=== PATIENT | female | born 1980 | race Asian ===

== ENCOUNTER 2016-07-30 13:46 | Emergency (ER) | payer MEDICAID, OTHER ==
[~2016-07-30] VITALS: Wt 63.6 kg
--- NOTE | 2016-07-30 16:13 | RADRPT ---
PROCEDURE: OBSTETRICAL ULTRASOUND WITH ENDOVAGINAL IMAGES CLINICAL INDICATION: vag bleed TECHNIQUE: Multiple sonographic images of the pelvis were obtained utilizing a transabdominal and endovaginal technique. The images were reviewed on a PACS workstation. COMPARISON: None. LMP: 06/14/2016 FINDINGS: There is a single live intrauterine with heart rate of 124 beats per minute, mean sa c diameter of 1.87 cm, and crown-rump length of 0.69 cm which is consistent with a gestational age o f 6 weeks, 5 days . The estimated date of delivery by ultrasound is 03/20/2017 . The estimated gestational age by LMP is 6 weeks, 4 days . The estimated date of delivery by LMP is 03/21/2017 . The right ovary measures 2.5 x 2.0 x 2.3 cm. The left ovary measures 3.6 x 2.3 x 2.4 cm. There is no rmal vascular flow in both ovaries. There is a 2.3 x 1.4 x 1.6 cm circumscribed oval hyperechoic lesion in the right ovary with posterio r acoustic enhancement which has the typical appearance of a dermoid cyst. No significant pelvic free fluid is identified. IMPRESSION: Single live intrauterine consistent with a gestational age of 6 weeks, 5 days . The estimated date of delivery is 03/20/2017 . Dating by ultrasound is within 1 day of dating by LMP. 2.3 cm hyperechoic lesion in the right ovary has the typical appearance a dermoid cyst. RPTAT: EE Physician Cristy Date Time Electronically viewed and signed by Physician Cristy on 07/30/2016 16:13 /
--- NOTE | 2016-07-30 16:46 | ERD ---
ER Documentation Chief Complaint Date/Time DATE: 07/30/16 TIME: 16:42 Chief Complaint vag bleed, 6.5 wks preg HPI This patient is a 36-year-old [id number] female presenting to the department at 6 weeks of for brown spotting on the tissue which she noticed earlier this morning when going to the bathroom. The patient was at her SYSTEM SUPPORT DEVELOPER appointment and saw the nurse practitioner just prior to coming to the emergency department. She had an ultrasound done here which reportedly showed no heart tones and no pole because the fetus was to early. The patient denies any pain, fevers, chills, abdominal pain, nausea, vomiting, diarrhea or other symptoms at this time. ROS All systems reviewed and are negative except as per history of present illness. PMhx/Soc Medical and Surgical Hx: pt denies Medical Hx, pt denies Surgical Hx FmHx Noncontributory for chief complaint Physical Exam Vitals Vital Signs Date Time Temp Pulse Resp B/P Pulse Ox O2 Delivery O2 Flow Rate FiO2 07/30/16 14:10 98.0 75 20 123/65 100 Physical Exam INITIAL VITAL SIGNS: Reviewed by me GENERAL: The patient is well developed and appropriate for usual state of health in no apparent distress HEENT: Pupils equal, round, and reactive to light. EOMI. There is no scleral icterus. NECK: C-spine is soft and supple, there is no meningismus. There is no cervical lymphadenopathy. LUNGS: Clear to auscultation bilaterally. There are no rales, wheezes or rhonchi. HEART: Regular rate and rhythm, no murmurs, clicks, rubs or gallops. ABDOMEN: Soft, non-tender, non-distended. There are bowel sounds in all four quadrants. No rebound or guarding. EXTREMITIES: There is no peripheral cyanosis or edema. No focal swelling or erythema. NEUROLOGICAL: The patient moves all four extremities with 5/5 strength. Cranial nerves II - XII are intact. Normal gait. Alert and oriented SKIN: There is no apparent rash or petechiae. HEME/LYMPHATIC: There is no evidence of excessive bruising or lymphedema. PSYCHIATRIC: The patient does not appear anxious or depressed. Procedures/MDM ED course: Imaging: OBSTETRICAL ULTRASOUND WITH ENDOVAGINAL IMAGES: Single live intrauterine consistent with a gestational age of 6 weeks , 5 days . The estimated date of delivery is 03/20/2017 . Dating by ultrasound is within 1 day of dating by LMP. 2.3 cm hyperechoic lesion in the right ovary has the typical appearance a dermoid cyst. MDM: 36-year-old female presenting to the emergency department for brown spotting that she saw on the toilet paper this morning. On physical examination there is no suprapubic tenderness or CVA tenderness. On interpretation of ultrasound results there is a single live intrauterine consistent with gestational age of 6 weeks and 5 days. The patient has an appointment with her SYSTEM SUPPORT DEVELOPER doctor tomorrow and she was given copies of her ultrasound results. At this time I have ruled out ectopic , fallopian torsion, demise, and other abdominal/OB emergencies. The patient is stable for discharge at this time. All questions and concerns were addressed at this time. Departure Diagnosis: Primary Impression: Vaginal bleeding in patient at less than 20 weeks ges... Condition: Good Patient Instructions: Bleeding During Early Additional Instructions: Follow up with your OBGYN at scheduled appointment tomorrow. Please bring copy of Ultrasound report with you. Follow-up with your primary care physician within 1 week. Return to the emergency department immediately should you have any new or worsening symptoms, uncontrolled fevers, or other unexplained symptoms. CAROL BLACK PA-C Jul 30, 2016 16:45
== END 2016-07-30 16:40 | disposition home or self-care (01) ==
LOC: FTE 13:46
DX: O20.9 Hemorrhage in early pregnancy, unspecified (principal); Z3A.01 Less than 8 weeks gestation of pregnancy
CPT/HCPCS: 76801; 76817; Z7502

== ENCOUNTER 2016-08-21 21:18 | Emergency (ER) | payer MEDICAID ==
[~2016-08-21] VITALS: Ht 160 cm; Wt 81.0 kg
[2016-08-21 21:32] VITALS: Ht 160 cm; Wt 81.0 kg
--- NOTE | 2016-08-21 23:50 | ERD ---
ER Documentation Chief Complaint Date/Time DATE: 08/21/16 TIME: 23:47 Chief Complaint 9wks , vag bleeding 1 hour ago HPI Patient is a 36-year-old female, approximately 9 weeks , A1, who presents to the emergency department with vaginal bleeding 2 hours. Patient states 3 days ago she had some spotting. Today she noticed some bright red blood. Patient denies using any pads yet. Patient denies any nausea, vomiting, fever, chills. Patient reports some suprapubic pain. She states that her current pain level is a 2 out of 10. It feels more like "pressure." Patient denies any dysuria. Patient denies any excessive vaginal discharge. Patient denies any sick contacts. No recent travel. Patient did have OB ultrasound done a few weeks ago, which she reports was normal. LMP= 06/14/16. ROS All systems reviewed and are negative except as per history of present illness. Allergies Allergies: Coded Allergies: No Known Allergy (Unverified , 08/21/16) PMhx/Soc Medical and Surgical Hx: pt denies Medical Hx, pt denies Surgical Hx History of Surgery: No Anesthesia Reaction: No Hx Neurological Disorder: No Hx Respiratory Disorders: No Hx Cardiac Disorders: No Hx Psychiatric Problems: No Hx Miscellaneous Medical Probl: No Hx Alcohol Use: No Hx Substance Use: No Hx Tobacco Use: No FmHx Family History: No diabetes Physical Exam Vitals Vital Signs Date Time Temp Pulse Resp B/P Pulse Ox O2 Delivery O2 Flow Rate FiO2 08/22/16 03:05 100.7 77 18 117/78 100 Room Air 08/21/16 21:32 97.9 83 20 128/77 99 Physical Exam GENERAL: Well-developed, well-nourished female. Appears in no acute distress. HEAD: Normocephalic, atraumatic. EYES: Pupils are equally reactive bilaterally. EOMs grossly intact. No conjunctival erythema. ENT: Moist mucous membranes. No uvula deviation. No kissing tonsils. NECK: Supple. No lymphadenopathy or thyromegaly. No meningismus. LUNG: Clear to auscultation bilaterally. No rhonchi, wheezing, rales or coarse breath sounds. HEART: Regular rate and rhythm. No murmurs, rubs or gallops. ABDOMEN: No scars, ecchymosis or rashes noted. Soft and nondistended. Tender to palpation in suprapubic region. Positive bowel sounds in all four quadrants. No rebound tenderness, no guarding. (-) McBurneys point tenderness. No CVA tenderness. BACK: No midline tenderness. EXTREMITIES: Equal pulses bilaterally. No peripheral clubbing, cyanosis or edema. No unilateral leg swelling. NEUROLOGIC: Alert and oriented. Moving all four extremities without any difficulty. Normal speech. Steady gait. SKIN: Normal color. Warm and dry. No rashes or lesions. Result Diagram: 08/21/16 2350 Results 24 hrs Laboratory Tests Test 08/21/16 23:50 08/22/16 00:21 Basophils # 0.010^3/ul Basophils % 0.3% Beta HCG, Quantitative 43802.0mIU/ml Eosinophils # 0.110^3/ul Eosinophils % 1.2% Hematocrit 42.3% Hemoglobin 14.0g/dl Lymphocytes # 1.810^3/ul Lymphocytes % 18.8% Mean Corpuscular Hemoglobin 29.7pg Mean Corpuscular Hemoglobin Concent 33.1g/dl Mean Corpuscular Volume 89.6fl Mean Platelet Volume 9.1fl Monocytes # 0.510^3/ul Monocytes % 5.1% Neutrophils # 7.010^3/ul Neutrophils % 74.3% Nucleated Red Blood Cells # 0.010^3/ul Nucleated Red Blood Cells % 0.0/100WBC Platelet Count 74524^3/UL Red Blood Count 4.7210^6/ul Red Cell Distribution Width 12.5% White Blood Count 9.410^3/ul Urine Bilirubin NEGATIVE Urine Clarity CLEAR Urine Color LT. YELLOW Urine Glucose NEGATIVE% Urine Hemoglobin 3+ Urine Ketones NEGATIVE Urine Leukocyte Esterase NEGATIVE Urine Microscopic RBC 10-25/HPF Urine Microscopic WBC NONE SEEN/HPF Urine Nitrite NEGATIVE Urine Specific [place] <=1.005 Urine Squamous Epithelial Cells OCCASIONAL Urine Total Protein NEGATIVE Urine Urobilinogen 0.2 E.U./dL Urine pH 6.5 Procedures/MDM ED COURSE: The patient was stable throughout ED course. I kept the patient and/or family informed of laboratory and diagnostic imaging results throughout the ED course. DIAGNOSTIC IMAGING: Read by radiologist. DIAGNOSTIC IMAGING REPORT Patient: BARRINGTON HERNANDEZ : 1980 Age: 36 Sex: F MR #: [id number] DOS: 08/22/16 2342 Ordering MD: RADHA TAYLOR PA-C Location: [facility] Room/Bed: PROCEDURE: US OB. CLINICAL INDICATION: Vaginal bleeding and TECHNIQUE: Transabdominal views of the pelvis are available for review. COMPARISON: 07/30/2016 FINDINGS: [place]-rump length: 2.64 cm heart rate: 179 bpm Gestational sac: 3.77 cm Ultrasound estimated gestational age: 9 weeks 2 days, appropriate growth compared to the prior exam. New ovoid hypoechoic area measuring 2.2 cm consistent with a subchorionic hemorrhage. Small simple left ovarian cyst is present measuring 1.5 x 1.2 x 1.1 cm. The right ovary is not visualized. There is no free fluid. RPTAT:HJJR IMPRESSION: 1. Single viable intrauterine with an estimated gestational age of 9 weeks 2 days, appropriate interval growth compared to the study of 07/30/2016 with the estimated date of delivery 03/25/2017. 2. New subchorionic hemorrhage measures approximately 2.2 cm in greatest dimension. Consider follow-up evaluation. 3. Incidental simple left ovarian cyst of 1.5 cm. 4. Nonvisualization of the right ovary. Physician Zuleyka Date Time Electronically viewed and signed by Physician Zuleyka on 08/22/2016 00:40 JR/ CC: RADHA TAYLOR PA-C MEDICAL DECISION MAKING: This is a this is a 36-year-old female, A1, who presents to the emergency department with 2 hours of bright red vaginal bleeding. Vital signs were reviewed. Patient was afebrile. [place] [address].0. Patient was O+. CBC showed no evidence of systemic infection or severe anemia. UA showed no signs of infection, but + blood. Pelvic US showed Single viable intrauterine with an estimated gestational age of 9 weeks 2 days, appropriate interval growth compared to the study of 07/30/2016 with the estimated date of delivery 03/25/2017. New subchorionic hemorrhage measures approximately 2.2 cm in greatest dimension. Consider follow-up evaluation. Incidental simple left ovarian cyst of 1.5 cm. Nonvisualization of the right ovary. Given these findings, the patients presentation is most consistent with vaginal bleeding during 1st trimester likely due to subchorionic hemorrhage and ovarian cyst. I have a much lower clinical concern for ectopic , ruptured ectopic , molar , spontaneous , incomplete , complete , missed , placental abruption, placental previa, vasa previa, uterine rupture, anembyronic . Patient will need to follow up with OBGYN. Dr. Schmid, for monitoring and further management of subchorionic hemorrhage and ovarian cyst. DISCHARGE: At this time, patient is stable for discharge and outpatient management. I had a conversation at length with the patient about the concerns of vaginal bleeding during the 1st trimester of . Patient and/or family understands that her vaginal bleeding can be a normal finding or a sign of miscarriage. I have instructed the patient to follow-up with her OBGYN in 1-2 days for further monitoring including a repeat b-HCG level and OB US. I have instructed the patient to promptly return to the ER at any time for any new or worsening symptoms including increased pain, nausea, vomiting, continued bleeding, weakness, syncope or fever. The patient and/or family expressed understanding of and agreement with this plan. All questions were answered. Home care instructions were provided. Departure Diagnosis: Primary Impression: Vaginal bleeding in patient at less than 20 weeks ges... Condition: Stable Patient Instructions: Bleeding During Early Referrals: [facility] YOU HAVE RECEIVED A MEDICAL SCREENING EXAM AND THE RESULTS INDICATE THAT YOU DO NOT HAVE A CONDITION THAT REQUIRES URGENT TREATMENT IN THE EMERGENCY DEPARTMENT. FURTHER EVALUATION AND TREATMENT OF YOUR CONDITION CAN WAIT UNTIL YOU ARE SEEN IN YOUR DOCTORS OFFICE WITHIN THE NEXT 1-2 DAYS. IT IS YOUR RESPONSIBILITY TO MAKE AN APPOINTMENT FOR FOLOW-UP CARE. IF YOU HAVE A PRIMARY DOCTOR --you should call your primary doctor and schedule an appointment IF YOU DO NOT HAVE A PRIMARY DOCTOR YOU CAN CALL OUR PHYSICIAN REFERRAL HOTLINE AT IF YOU CAN NOT AFFORD TO SEE A PHYSICIAN YOU CAN CHOSE FROM THE FOLLOWING [facility] [address] [facility]. [facility] [address] [facility]. [facility] [address] [facility] [address] [facility] [address] [facility]. [facility]. [address] [facility] [facility] YOU HAVE RECEIVED A MEDICAL SCREENING EXAM AND THE RESULTS INDICATE THAT YOU DO NOT HAVE A CONDITION THAT REQUIRES URGENT TREATMENT IN THE EMERGENCY DEPARTMENT. FURTHER EVALUATION AND TREATMENT OF YOUR CONDITION CAN WAIT UNTIL YOU ARE SEEN IN YOUR DOCTORS OFFICE WITHIN THE NEXT 1-2 DAYS. IT IS YOUR RESPONSIBILITY TO MAKE AN APPOINTMENT FOR FOLOW-UP CARE. IF YOU HAVE A PRIMARY DOCTOR --you should call your primary doctor and schedule and appointment IF YOU DO NOT HAVE A PRIMARY DOCTOR YOU CAN CALL OUR PHYSICIAN REFERRAL HOTLINE AT . IF YOU CAN NOT AFFORD TO SEE A PHYSICIAN YOU CAN CHOSE FROM THE FOLLOWING [facility] INSTITUTIONS: [facility] [address] [place] [address] [facility] [address] [place] [address] [facility] [address] [place] [address] [employer] [address] [facility] [address] [place], [place] [phone] OFFICE FAX JAZZY VALENTE [address] [place], [place] [id number]A [place] [address] [place], [place] [phone] KAREN LAURENT [address] [facility], [address] [id number] LUDY BERRY [address] [place] [phone] [facility] [address] [place] [id number] [address] [facility], [facility] [id number] - PRITI AGUIRRE [address] [facility] [id number] ARMENDARIZ, NAVEEN [address] [facility]. [address], [facility] [phone] KILLIAN, [facility] [address] [place] [address] Additional Instructions: Call your primary care doctor/OBGYN TOMORROW for an appointment during the next 1-2 days.See the doctor sooner or return here if your condition worsens before your appointment time. RADHA TAYLOR PA-C Aug 21, 2016 23:50
--- NOTE | 2016-08-22 00:41 | RADRPT ---
PROCEDURE: US OB. CLINICAL INDICATION: Vaginal bleeding and TECHNIQUE: Transabdominal views of the pelvis are available for review. COMPARISON: 07/30/2016 FINDINGS: [place]-rump length:2.64 cm heart rate:179 bpm Gestational sac:3.77 cm Ultrasound estimated gestational age:9 weeks 2 days, appropriate growth compared to the prior exam. New ovoid hypoechoic area measuring 2.2 cm consistent with a subchorionic hemorrhage. Small simple left ovarian cyst is present measuring 1.5 x 1.2 x 1.1 cm. The right ovary is not visua lized. There is no free fluid. RPTAT:HJJR IMPRESSION: 1. Single viable intrauterine with an estimated gestational age of 9 weeks 2 days, approp riate interval growth compared to the study of 07/30/2016 with the estimated date of delivery 2016. 2. New subchorionic hemorrhage measures approximately 2.2 cm in greatest dimension. Consider follo w-up evaluation. 3. Incidental simple left ovarian cyst of 1.5 cm. 4. Nonvisualization of the right ovary. Physician Zuleyka Date Time Electronically viewed and signed by Physician Zuleyka on 08/22/2016 00:40 JR/
[2016-08-22 01:09] LABS: ADD UMIC YES; URINE BILIRUBIN (Dip) NEGATIVE (NEGATIVE); URINE BLOOD (Dip) 3+ (NEGATIVE); URINE COLOR LT. YELLOW (YELLOW); URINE GLUCOSE (Dip) NEGATIVE (NEGATIVE); URINE KETONES (Dip) NEGATIVE (NEGATIVE); URINE LEUKOCYTE ESTERASE (Dip) NEGATIVE (NEGATIVE); URINE NITRITE (Dip) NEGATIVE (NEGATIVE); URINE TOTAL PROTEIN (Dip) NEGATIVE (NEGATIVE); URINE UROBILINOGEN (Dip) 0.2 E.U./dL (0.1-1.0)
[2016-08-22 02:18] LABS: BASOPHILS % 0.3 % (0.0-2.0); EOSINOPHILS # 0.1 10^3/ul (0.0-0.5); EOSINOPHILS % 1.2 % (0.0-7.0); HEMATOCRIT 42.3 % (37.0-47.0); LYMPHOCYTES # 1.8 10^3/ul (0.8-2.9); LYMPHOCYTES % 18.8 % (15.0-51.0); MEAN CORPUSCULAR HEMOGLOBIN 29.7 pg (29.0-33.0); MEAN CORPUSCULAR HGB CONC 33.1 g/dl (32.0-37.0); MEAN CORPUSCULAR VOLUME 89.6 fl (82.0-101.0); MEAN PLATELET VOLUME 9.1 fl (7.4-10.4); MONOCYTE # 0.5 10^3/ul (0.3-0.9); MONOCYTES % 5.1 % (0.0-11.0); NEUTROPHILS % 74.3 % (39.0-77.0); PLATELET COUNT 326 10^3/UL (140-440); RED BLOOD COUNT 4.72 10^6/ul (4.20-5.40); RED CELL DISTRIBUTION WIDTH 12.5 % (11.5-14.5); WHITE BLOOD COUNT 9.4 10^3/ul (4.8-10.8)
[2016-08-22 03:02] LABS: SQUAMOUS EPITHELIAL CELL,UR OCCASIONAL
[2016-08-22 03:05] VITALS: BP 117/78; PULSE 77; RESP 18; TEMP 100.7
== END 2016-08-22 03:06 | disposition home or self-care (01) ==
LOC: FTE 21:18
DX: O20.9 Hemorrhage in early pregnancy, unspecified (principal); Z3A.09 9 weeks gestation of pregnancy
CPT/HCPCS: 36415; 76801; 81001; 81003; 84702; 85025; 86900; 86901; Z7502

== ENCOUNTER 2017-03-04 09:06 | Inpatient (IN) | payer OTHER, MEDICAID ==
[~2017-03-04] VITALS: Ht 157.5 cm; Wt 92.6 kg
[~2017-03-04 09:06] MED LIST: LIDOCAINE 2% (SDV) 5 ML INJ ONE; OXYTOCIN 30 UNITS/LR 500 ML BAG IV ONE
[2017-03-04 09:22] VITALS: Ht 157.5 cm; Wt 92.6 kg
[2017-03-04] MEDS ORDERED: PRENAT PO (09:22)
[2017-03-04 09:23] VITALS: BP 123/81; PULSE 81; RESP 18
[2017-03-04] MEDS ORDERED: LIDOCAINE 1% (MPF) 30 ML INJ INJ PRN (10:00)
[2017-03-04] MEDS ORDERED: LACTATED RINGER'S 1,000 ML IV PRN (10:00)
[2017-03-04] MEDS ORDERED: CARBOPROST 250 MCG INJ IM PRN (10:00)
[2017-03-04] MEDS ORDERED: OXYTOCIN 30 UNITS/LR 500 ML IV PRN (10:00)
[2017-03-04] MEDS ORDERED: IBUPROFEN 600 MG TAB PO PRN (10:00)
[2017-03-04] MEDS ORDERED: OXYTOCIN 30 UNITS/LR 500 ML IV SCH ×4 (10:00→20:00)
[2017-03-04] MEDS ORDERED: METHYLERGONOVINE 0.2 MG INJ IM PRN (10:00)
[2017-03-04] MEDS ORDERED: BUTORPHANOL 2 MG INJ IV PRN (10:00)
[2017-03-04] MEDS ORDERED: AMPICILLIN 2 GM/NS (PMX) 100 ML IV ONE (10:00)
[2017-03-04] MEDS ORDERED: MISOPROSTOL 200 MCG TAB PR PRN (10:00)
[2017-03-04] MEDS: LACTATED RINGER'S 1,000 ML IV SCH ×2 (10:22→13:53)
[2017-03-04 10:31] LABS: BASOPHILS % 0.2 % (0.0-2.0); EOSINOPHILS # 0.1 10^3/ul (0.0-0.5); EOSINOPHILS % 0.8 % (0.0-7.0); HEMATOCRIT 37.7 % (37.0-47.0); HEMOGLOBIN 12.3 g/dl (12.0-16.0); LYMPHOCYTES % 10.4 % (15.0-51.0); MEAN CORPUSCULAR HEMOGLOBIN 29.1 pg (29.0-33.0); MEAN CORPUSCULAR HGB CONC 32.6 g/dl (32.0-37.0); MEAN CORPUSCULAR VOLUME 89.1 fl (82.0-101.0); MEAN PLATELET VOLUME 9.4 fl (7.4-10.4); MONOCYTE # 0.5 10^3/ul (0.3-0.9); MONOCYTES % 5.1 % (0.0-11.0); PLATELET COUNT 258 10^3/UL (140-415); RED BLOOD COUNT 4.23 10^6/ul (4.20-5.40); RED CELL DISTRIBUTION WIDTH 14.3 % (11.5-14.5); WHITE BLOOD COUNT 9.2 10^3/ul (4.8-10.8)
[2017-03-04] MEDS ORDERED: FENTAnyl 2MCG/ML-ROPIV 0.2% 100 ML ONE (10:44)
--- NOTE | 2017-03-04 11:00 | TRIAGE ---
OB Triage Datetime Report Generated by CPN: 03/04/2017 09:33 Datetime: 03/04/2017 09:27 Vaginal Exam Dilatation (cms): 4.5 Effacement (%): 80 Station: -2 Exam By: khemani Membrane Status: Bulging Vaginal Bleeding: Normal Show Cervix, Consistency: Soft Cervix, Position: Midposition Datetime: 03/04/2017 09:19 Assessment Type: Triage Maternal Assessment Level of Consciousness: Fully Conscious DTR's/Clonus: DTRs 2+; No Clonus Headache: Denies Blurred Vision: No Respiratory Effort: Unlabored; Regular Rhythm; Equal Expansion Breath Sounds, Left: Clear and Equal Breath Sounds, Right: Clear and Equal Nausea/Vomiting: Denies RUQ Epigastric Pain: Denies Lower Extremities Edema: Bilateral Lower Extremities Degree: 1+ Upper Extremities Edema: None Degree: None Facial Edema: None Fall Risk Assessment History of Falling: (0) No Secondary Diagnosis: (0) No Ambulatory Aid: (0) Bedrest/Nurse Assist IV Therapy: (0) No Gait: (0) Normal/Bedrest/Immobile Mental Status: (0) Oriented to Own Ability Fall Score: 0 Fall Risk Score Definition: No Risk: No action required Datetime: 03/04/2017 09:18 Time of Arrival: 03/04/2017 09:05 EGA: 37.4 Arrived By: Wheelchair Arrived From: Home Chief Complaint: PT CAME IN FOR C/O UC'S Movement: Present Contractions: Irregular Rupture of Membranes: Denies Vaginal Bleeding: None Vaginal Discharge: Denies Recent Sexual Intercouse: Denies Abdominal Trauma: Not Applicable Patient Complaints: Contractions; Cramping; Back Pain Time Provider Notified: 03/04/2017 09:30 Provider Notified: RICHARDSON Initial Plan: EFM/SVE Datetime: 03/04/2017 09:16 Labor Evaluation Monitor Mode: External Heart Rate Monitor Mode: External US
[2017-03-04 11:13] LABS: INR 0.88; PROTIME 11.9 Sec (12.2-14.2); PT RATIO 0.9
[2017-03-04 11:14] LABS: PARTIAL THROMBOPLASTIN TIME 27.9 Sec (25.0-35.0)
--- NOTE | 2017-03-04 12:59 | HP ---
Date/Time of Note Date/Time of Note DATE: 03/04/17 TIME: 12:58 OB - History Hx of Present Free Text/Dictation AT 36 IN ACTIVE LABOR Care: Good Care Ultrasounds: Normal mid trimester US Obstetrical Complications: None Medical Complications: None Past Family/Social History * Past Medical, Surgical, Family and Obstetric Histories reviewed from chart. OB Admission Exam Vital Signs Vital Signs Vital Signs Date Time Temp Pulse Resp B/P Pulse Ox O2 Delivery O2 Flow Rate FiO2 03/04/17 09:23 97.9 81 18 123/81 98 Room Air Physical Exam HEENT: WNL Heart: Rhythm Normal Lungs: Clear, Equal Abdomen: WNL Extremities: Normal Reflexes: Normal Cervical Dilatation: 5cm Effacement: 50% Station: -1 Membranes: Ruptured Amniotic Fluid: Clear Heart Rate: 120's Accelerations: Accelerations Present Decelerations: No Decelerations Last 72 hours Lab Results CBC & BMP 03/04/17 09:50 OB Assessment/Plan Reason for admission: active labor Plan: Expectant Management YOSELYN BAI MD Mar 04, 2017 12:59
[2017-03-04] MEDS: FENTAnyl 2MCG/ML-ROPIV 0.2% 100 ML BAG EPI SCH ×3 (13:20→16:42)
[2017-03-04] MEDS ORDERED: ONDANSETRON 4 MG INJ IV PRN ×2 (13:30→20:30)
[2017-03-04] MEDS ORDERED: NALOXONE (0.4 MG/ML) INJ IV PRN ×2 (13:30→20:30)
[2017-03-04] MEDS ORDERED: DIPHENHYDRAMINE 50 MG INJ IV PRN ×2 (13:30→20:30)
[2017-03-04] MEDS: AMPICILLIN 1 GM/NS (PMX) 50 ML IV SCH ×2 (14:00→18:00)
[2017-03-04] MEDS ORDERED: DEXTROSE 5%-LR 1,000 ML IV SCH (18:30)
[2017-03-04] MEDS ORDERED: FENTAnyl 50 MCG/ML VIAL ONE (19:29)
[2017-03-04] MEDS ORDERED: MINERAL OIL LIGHT 10 ML VIAL TOP ONE ×2 (19:30)
--- NOTE | 2017-03-04 19:34 | OPR ---
Operative Report Planned Procedure Free Text/Dictation term preg. in labor . progressed to complete and failure to descent for over 2 hours. pt. requesting a c/s Procedure date Mar 04, 2017 Performed by: YOSELYN BAI MD Assisting provider: RUSSELL FIERRO MD Anesthesia Type: epidural Procedure Description Under satisfactory [epidural ] anesthesia, the patient was prepped and draped and placed in a supine position, tilted to the left. Pfannenstiel incision was made, carried through the subcutaneous tissue. Bleeders brought under control with electrocautery. Fascia incised to the length of the incision. Rectus muscles from the fascia, divided midline. Peritoneum exposed, entered through a transverse incision. Exploration of abdomen revealed gravid uterus. Bladder flap was developed. Transverse incision was made in the lower segment of the uterus. Amniotic sac ruptured. clear amniotic fluid noted. [] Nasal oropharyngeal suction was performed. The baby was handed to the team for immediate attention. The placenta was delivered manually intact. Uterine cavity was cleaned with wet sponge and drainage established. Uterus closed in 2 layers using [one monocryl ] in continuous fashion. Peritoneal cavity irrigated with warm saline. Sponge, needle and instrument count reported to be correct. Abdominal peritoneum closed with [] continuously. Rectus muscle approximated with []. Fascia closed with one monocryl[], and skin closed with gaurav. Estimated blood loss 700[]mL. Post-Procedure Findings: Live Baby [], Apgars [] and [], weight [], position [], [] presentation []cord. Physician Certification I, the undersigned physician, hereby certify that I have discussed the procedure described in this consent form with this patient (or the patient's legal patient admitting representative), including: * The risk and benefits of the procedure; * Any adverse reactions that may reasonably be expected to occur; * Any alternative efficacious methods of treatment which may be medically viable ; * The potential problems that may occur during recuperation; * Potential for blood transfusion and associated risks/benefits; and * Any research or economic interest I may have regarding this treatment. I further certify that the patient/legally responsible person was encouraged to ask question and that all questions were answered. YOSELYN BAI MD Mar 04, 2017 19:34
[2017-03-04] MEDS ORDERED: CEFAZOLIN 2 GM/50 ML (PMX) 50 ML IVPB ONE (19:36)
[2017-03-04] MEDS ORDERED: DEXAMETHASONE 4 MG/ML 1 ML INJ ONE (19:49)
[2017-03-04] MEDS ORDERED: MIDAZOLAM 1 MG/ML 2 ML INJ ONE (19:59)
[2017-03-04] MEDS ORDERED: CEFAZOLIN 2 GM/50 ML (PMX) 50 ML IV SCH (20:00)
[2017-03-04] MEDS ORDERED: PHENYLephrine (100 MCG/ML) 5ML SYG ONE (20:04)
[2017-03-04] MEDS ORDERED: morphine SULFATE/PF (10 MG/10 ML) INJ ONE (20:05)
[2017-03-04] MEDS ORDERED: HYDROmorphONE 1 MG/ML SYG IV PRN ×2 (20:30)
[2017-03-04] MEDS ORDERED: MEPERIDINE 25 MG INJ IV ONE (21:00)
[2017-03-04] MEDS: KETOROLAC 30 MG INJ IV PRN (21:50)
[2017-03-04 23:08] LABS: ABNORMAL IP MESSAGE 1; BASOPHILS % 0.2 % (0.0-2.0); HEMATOCRIT 31.2 % (37.0-47.0); HEMOGLOBIN 10.2 g/dl (12.0-16.0); LYMPHOCYTES # 0.5 10^3/ul (0.8-2.9); LYMPHOCYTES % 2.9 % (15.0-51.0); MEAN CORPUSCULAR HEMOGLOBIN 29.3 pg (29.0-33.0); MEAN CORPUSCULAR HGB CONC 32.7 g/dl (32.0-37.0); MEAN CORPUSCULAR VOLUME 89.7 fl (82.0-101.0); MEAN PLATELET VOLUME 9.4 fl (7.4-10.4); MONOCYTE # 0.8 10^3/ul (0.3-0.9); MONOCYTES % 4.4 % (0.0-11.0); NEUTROPHILS % 92.1 % (39.0-77.0); PLATELET COUNT 210 10^3/UL (140-415); RED BLOOD COUNT 3.48 10^6/ul (4.20-5.40); RED CELL DISTRIBUTION WIDTH 14.4 % (11.5-14.5); WHITE BLOOD COUNT 18.2 10^3/ul (4.8-10.8)
[2017-03-04 23:16] LABS: POSITIVE DIFF @See below
[2017-03-04 23:24] LABS: INR 0.99; PROTIME 13.1 Sec (12.2-14.2)
[2017-03-04 23:25] LABS: PARTIAL THROMBOPLASTIN TIME 27.5 Sec (25.0-35.0)
[2017-03-05 00:11] VITALS: BP 104/58; PULSE 82; RESP 18
[2017-03-05] MEDS ORDERED: MISOPROSTOL 200 MCG TAB PR PRN (00:30)
[2017-03-05] MEDS ORDERED: NACL 0.9% 3 ML SYG IV SCH (00:30)
[2017-03-05] MEDS ORDERED: METHYLERGONOVINE 0.2 MG INJ IM PRN (00:30)
[2017-03-05] MEDS ORDERED: NA PHOSPHATE/BIPHOS 133 ML ENEMA PR PRN (00:30)
[2017-03-05] MEDS ORDERED: OXYTOCIN 30 UNITS/LR 500 ML IV PRN (00:30)
[2017-03-05] MEDS ORDERED: CARBOPROST 250 MCG INJ IM PRN (00:30)
[2017-03-05] MEDS ORDERED: LANOLIN 7 GM TUBE TOP PRN (00:30)
[2017-03-05] MEDS ORDERED: HYDROCODONE/APAP (5/325) TAB PO PRN (00:30)
[2017-03-05] MEDS: OXYTOCIN 30 UNITS/LR 500 ML IV SCH ×2 (02:32→04:05)
[2017-03-05] MEDS: LACTATED RINGER'S 1,000 ML IV SCH ×3 (03:46→14:18)
[2017-03-05 05:00] VITALS: BP 97/52; PULSE 81; RESP 17
[2017-03-05] MEDS: IBUPROFEN 800 MG TAB PO SCH ×3 (06:00→22:31)
[2017-03-05 06:26] LABS: BASOPHILS % 0.1 % (0.0-2.0); HEMATOCRIT 27.2 % (37.0-47.0); LYMPHOCYTES # 0.8 10^3/ul (0.8-2.9); LYMPHOCYTES % 4.9 % (15.0-51.0); MEAN CORPUSCULAR HEMOGLOBIN 29.9 pg (29.0-33.0); MEAN CORPUSCULAR HGB CONC 33.1 g/dl (32.0-37.0); MEAN CORPUSCULAR VOLUME 90.4 fl (82.0-101.0); MEAN PLATELET VOLUME 9.5 fl (7.4-10.4); MONOCYTE # 0.9 10^3/ul (0.3-0.9); MONOCYTES % 5.6 % (0.0-11.0); PLATELET COUNT 213 10^3/UL (140-415); RED BLOOD COUNT 3.01 10^6/ul (4.20-5.40); RED CELL DISTRIBUTION WIDTH 14.5 % (11.5-14.5); WHITE BLOOD COUNT 15.2 10^3/ul (4.8-10.8)
[2017-03-05] MEDS: KETOROLAC 30 MG INJ IV PRN (07:08)
[2017-03-05 08:30] VITALS: BP 99/56; PULSE 75; RESP 18
--- NOTE | 2017-03-05 08:43 | QN ---
Documentation Comment doing well vss abd soft oob today YOSELYN BAI MD Mar 05, 2017 08:43
--- NOTE | 2017-03-05 08:43 | DS ---
Date/Time of Note Date/Time of Note DATE: 03/05/17 TIME: 08:43 Discharge Summary Admission/Discharge Info Admit Date/Time Mar 04, 2017 at 09:40 Discharge Date/Time Discharge Diagnosis term preg Patient Condition: Good Hospital Course unremarkable Home Meds Reported Medications Multivit/Min/Fol Ac/Iron/Pren* ( S*) 1 Tab Tab, 1 TAB PO DAILY, TAB 03/04/17 Primary Care Provider Care Physician No Primary Pending Labs Laboratory Tests Test 03/04/17 09:50 03/04/17 10:43 03/04/17 22:47 03/05/17 05:46 White Blood Count 9.210^3/ul (4.8-10.8) 18.210^3/ul (4.8-10.8) 15.210^3/ul (4.8-10.8) Red Blood Count 4.2310^6/ul (4.20-5.40) 3.4810^6/ul (4.20-5.40) 3.0110^6/ul (4.20-5.40) Hemoglobin 12.3g/dl (12.0-16.0) 10.2g/dl (12.0-16.0) 9.0g/dl (12.0-16.0) Hematocrit 37.7% (37.0-47.0) 31.2% (37.0-47.0) 27.2% (37.0-47.0) Mean Corpuscular Volume 89.1fl (82.0-101.0) 89.7fl (82.0-101.0) 90.4fl (82.0-101.0) Mean Corpuscular Hemoglobin 29.1pg (29.0-33.0) 29.3pg (29.0-33.0) 29.9pg (29.0-33.0) Mean Corpuscular Hemoglobin Concent 32.6g/dl (32.0-37.0) 32.7g/dl (32.0-37.0) 33.1g/dl (32.0-37.0) Red Cell Distribution Width 14.3% (11.5-14.5) 14.4% (11.5-14.5) 14.5% (11.5-14.5) Platelet Count 03513^3/UL (140-415) 46176^3/UL (140-415) 83860^3/UL (140-415) Mean Platelet Volume 9.4fl (7.4-10.4) 9.4fl (7.4-10.4) 9.5fl (7.4-10.4) Neutrophils % 83.0% (39.0-77.0) 92.1% (39.0-77.0) 89.0% (39.0-77.0) Lymphocytes % 10.4% (15.0-51.0) 2.9% (15.0-51.0) 4.9% (15.0-51.0) Monocytes % 5.1% (0.0-11.0) 4.4% (0.0-11.0) 5.6% (0.0-11.0) Eosinophils % 0.8% (0.0-7.0) 0.0% (0.0-7.0) 0.0% (0.0-7.0) Basophils % 0.2% (0.0-2.0) 0.2% (0.0-2.0) 0.1% (0.0-2.0) Nucleated Red Blood Cells % 0.0/100WBC (0.0-0.0) 0.0/100WBC (0.0-0.0) 0.0/100WBC (0.0-0.0) Neutrophils # (Manual) 810^3/ul (1.7-7.5) 1710^3/ul (1.7-7.5) 1410^3/ul (1.7-7.5) Lymphocytes # 1.010^3/ul (0.8-2.9) 0.510^3/ul (0.8-2.9) 0.810^3/ul (0.8-2.9) Monocytes # 0.510^3/ul (0.3-0.9) 0.810^3/ul (0.3-0.9) 0.910^3/ul (0.3-0.9) Eosinophils # 0.110^3/ul (0.0-0.5) 0.010^3/ul (0.0-0.5) 0.010^3/ul (0.0-0.5) Basophils # 0.010^3/ul (0.0-0.1) 0.010^3/ul (0.0-0.1) 0.010^3/ul (0.0-0.1) Nucleated Red Blood Cells # 0.010^3/ul (0.0-0.0) 0.010^3/ul (0.0-0.0) 0.010^3/ul (0.0-0.0) Rapid Plasma Reagin NONREACTIVE (NR) Prothrombin Time 11.9Sec (12.2-14.2) 13.1Sec (12.2-14.2) Prothrombin Time Ratio 0.9 1.0 INR International Normalized Ratio 0.88 0.99 Activated Partial Thromboplast Time 27.9Sec (25.0-35.0) 27.5Sec (25.0-35.0) Hepatitis B Surface Antigen POSITIVE (NEGATIVE) YOSELYN BAI MD Mar 05, 2017 08:43
[2017-03-05 12:04] VITALS: BP 93/51; PULSE 88
[2017-03-05 15:00] VITALS: BP 106/52; PULSE 99; RESP 18
[2017-03-05 20:00] VITALS: BP 86/46; PULSE 88; RESP 20
[2017-03-05] MEDS: OXYCODONE/ACETAMINOPHEN (5/325) TAB PO PRN (20:51)
[2017-03-06 03:50] VITALS: BP 86/51; PULSE 74; RESP 18
[2017-03-06] MEDS: IBUPROFEN 800 MG TAB PO SCH ×3 (05:40→21:49)
[2017-03-06] MEDS: LACTATED RINGER'S 1,000 ML IV SCH ×2 (08:05→16:05)
[2017-03-06 08:15] VITALS: BP 102/57; PULSE 73; RESP 18
[2017-03-06] MEDS: OXYCODONE/ACETAMINOPHEN (5/325) TAB PO PRN (11:15)
[2017-03-06 11:57] VITALS: BP 111/61; PULSE 73; RESP 18
[2017-03-06 15:16] VITALS: BP 123/66; PULSE 83; RESP 18
--- NOTE | 2017-03-06 18:21 | QN ---
Documentation Comment DOING WELL VSS ABD SOFT INCISION IS C&D D/C HOME NEXT AM YOSELYN BAI MD Mar 06, 2017 18:21
--- NOTE | 2017-03-06 18:21 | DS ---
Date/Time of Note Date/Time of Note DATE: 03/06/17 TIME: 18:21 Discharge Summary Admission/Discharge Info Admit Date/Time Mar 04, 2017 at 09:40 Discharge Date/Time Discharge Diagnosis term preg Patient Condition: Good Hospital Course unremarkable Home Meds Reported Medications Multivit/Min/Fol Ac/Iron/Pren* ( S*) 1 Tab Tab, 1 TAB PO DAILY, TAB 03/04/17 Primary Care Provider Care Physician No Primary YOSELYN BAI MD Mar 06, 2017 18:21
[2017-03-06 19:45] VITALS: BP 110/68; PULSE 80; RESP 18
[2017-03-07 04:00] VITALS: BP 101/58; PULSE 72; RESP 20
[2017-03-07] MEDS: IBUPROFEN 800 MG TAB PO SCH ×2 (05:51→14:23)
[2017-03-07 08:41] VITALS: BP 105/73; PULSE 80; RESP 18
[2017-03-07] MEDS ORDERED: DIPHTH/TET/ACEL PERTUSS (ADULT) 0.5 ML VIAL IM* ONE (09:00)
[2017-03-07] MEDS ORDERED: MEASLES,MUMPS,RUBELLA VACCINE INJ SC* ONE (09:00)
--- NOTE | 2017-03-07 11:26 | QN ---
Documentation Comment POD#3 is stable afebrile No Vb +BM +voids Vs Stable Gen NAD Abd soft NT ND Incision ntact Genitalia No blood at perinium --.DISCHARGE hOME TAO PADILLA M.D. Mar 07, 2017 11:25
[2017-03-07] MEDS ORDERED: DIBUCAINE 1% 30 GM OINT TOP PRN (12:00)
[2017-03-07] MEDS ORDERED: WITCH HAZEL/GLYCERIN PAD PR PRN (12:00)
[2017-03-07 15:45] VITALS: BP 103/70; PULSE 80; RESP 18
[2017-03-07] MEDS: OXYCODONE/ACETAMINOPHEN (5/325) TAB PO PRN (16:52)
== END 2017-03-07 18:52 | disposition home or self-care (01) | DRG 766 ==
LOC: OBT 09:06 → L-D 09:07 → OBT 09:35 → L-D 09:40 → PP1 03-05 14:52
PROVIDERS: ADMIT Obstetrics & Gynecology; ATTEND Obstetrics & Gynecology
PROC: 10D00Z1 Extraction of Products of Conception, Low, Open Approach (ICD-10-PCS; principal; 2017-03-04)
PROC: 3E033VJ Introduction of Other Hormone into Peripheral Vein, Percutaneous Approach (ICD-10-PCS; 2017-03-04)
DX: O99.214 Obesity complicating childbirth (principal); E66.01 Morbid (severe) obesity due to excess calories; O62.0 Primary inadequate contractions; Z68.37 Body mass index [BMI] 37.0-37.9, adult; O48.0 Post-term pregnancy; Z3A.40 40 weeks gestation of pregnancy; Z37.0 Single live birth
CPT/HCPCS: 62319; 85025; 85610; 85730; 86592; 86704; 86850; 86900; 86901; 87340; 90715; 99464; G0463; J0290; J0690; J1100; J1200; J1885; J2175; J2250; J2274; J2370; J2405; J2590; J3010; J7120; J7121